=== PATIENT | female | born 1990 | race African-American/Black ===

== ENCOUNTER → 2016-05-16 | Outpatient (CLI) | payer OTHER ==
[~2016-05-16] MED LIST: CALNTAB; CEPH-460 PO; GLUCKIT15; GLYB5TAB3 PO; LANC1MIS74; MACR100C2 PO; METR0.7528 VAGINAL; ONETTES4; TERC.4%V VAGINAL; TERC0.8C VAGINAL; TRUE METRIX BLO1 KIT
== END ==
LOC: HPND 08:19
PROVIDERS: ATTEND Obstetrics & Gynecology
DX: O99.212 Obesity complicating pregnancy, second trimester (principal); E66.01 Morbid (severe) obesity due to excess calories; Z68.41 Body mass index [BMI] 40.0-44.9, adult
CPT/HCPCS: 76811

== ENCOUNTER → 2016-06-13 | Outpatient (CLI) | payer OTHER | LOC: HPND 08:39 | PROVIDERS: ATTEND Obstetrics & Gynecology | DX: O99.212 Obesity complicating pregnancy, second trimester (principal) | CPT/HCPCS: 76816 ==

== ENCOUNTER → 2016-07-11 | Outpatient (CLI) | payer OTHER ==
[~2016-07-11] MED LIST changes: -TERC.4%V VAGINAL
== END ==
LOC: HPND 08:20
PROVIDERS: ATTEND Obstetrics & Gynecology
DX: O99.212 Obesity complicating pregnancy, second trimester (principal); E66.01 Morbid (severe) obesity due to excess calories; Z68.43 Body mass index [BMI] 50.0-59.9, adult
CPT/HCPCS: 76816

== ENCOUNTER → 2016-07-31 | Outpatient (CLI) | payer OTHER ==
[~2016-07-31] MED LIST changes: -GLUCKIT15
== END ==
LOC: CDED 07:34
DX: O24.419 Gestational diabetes mellitus in pregnancy, unspecified control (principal); Z3A.00 Weeks of gestation of pregnancy not specified
CPT/HCPCS: 97802

== ENCOUNTER → 2016-08-08 | Outpatient (CLI) | payer OTHER | LOC: HPND 07:44 | PROVIDERS: ATTEND Obstetrics & Gynecology | DX: O24.419 Gestational diabetes mellitus in pregnancy, unspecified control (principal); O36.63X0 Maternal care for excessive fetal growth, third trimester, not applicable or unspecified; O99.213 Obesity complicating pregnancy, third trimester; Z3A.30 30 weeks gestation of pregnancy | CPT/HCPCS: 76816 ==

== ENCOUNTER 2016-08-25 18:24 | Emergency (ER) | payer OTHER ==
[~2016-08-25 18:24] MED LIST changes: -CEPH-460 PO; -MACR100C2 PO; -METR0.7528 VAGINAL
[2016-08-25 18:56] VITALS: BP 115/69; PULSE 98
--- NOTE | 2016-08-25 19:36 | PD ---
HPI Chief Complaint Lower abdominal pain Date Seen: Aug 25, 2016 Time Seen: 19:32 Travel History International Travel<30 Days: No Contact w/Intl Traveler<30Days: No Known Affected Area: No History of Present Illness HPI 25-year-old who is at 33 weeks gestation comes in complaining of lower abdominal pain that has been repetitive every day for the past several days, present episode began last night. She states it is a constant pain suprapubic towards the left side associated with some vaginal pressure. Denies contractions denies vaginal bleeding. Patient has had good movement. has been complicated by gestational diabetes recently been placed on glyburide at night. Previous with spontaneous vaginal delivery at term Para: 1 : 3 Miscarriage: 1 History Past Medical History Narrative Medical Gestational diabetes, hypoglycemic agent required Obstetric History Obstetric History Spontaneous vaginal delivery 15 week miscarriage Past Surgical History Surgical History: No Previous Surgery Family History Family History: Negative Social History Alcohol Use: No Tobacco Use: No Substance Abuse: No Allergies-Medications (Allergen,Severity, Reaction): Coded Allergies: No Known Allergies (Unverified , 08/12/16) Home Meds Active Scripts Glyburide 5 Mg Tab5 Mg PO DAILY #30 TAB Ref 0 Take with meals at the same time each day Prov:Jaswinder Chahal MD 08/12/16 True Metrix Blood Glucose W/Device 1 Kit Kit #1 Kit .route As Directed Prov:Shelby Figueroa 08/05/16 Onetouch Ultra Test Strips 1 Karlee Karlee #1 STRIP .ROUTE DIRECTED Ref 11 please substitute what test strips are covered by pt's insurance plan, for onetouch glucometer. Prov:Maddi Gross CNMP 07/31/16 Onetouch Delica Lancets E 1 Mis Mis #120 EA .ROUTE DIRECTED Ref 2 Prov:Maddi Gross CNMP 07/31/16 Terconazole Vaginal Cream 0.8 % Cream1 Appl VAGINAL HS #20 GM Ref 2 For 3 days. Prov:Maddi Gross CNMP 07/11/16 Reported Medications Vitamin (Calna)1 Tab Tab 05/01/16 Review of Systems Except as stated in HPI: all other systems reviewed are Neg Physical Exam Narrative GENERAL: Well-nourished, well-developed patient. SKIN: Warm and dry. HEAD: Normocephalic and atraumatic. EYES: No scleral icterus. No injection or drainage. ENT: No nasal drainage noted. Mucous membranes pink. Airway patent. NECK: Supple, trachea midline. No JVD. CARDIOVASCULAR: Regular rate and rhythm without murmurs, gallops, or rubs. RESPIRATORY: Breath sounds equal bilaterally. No accessory muscle use. ABDOMEN/GI: Abdomen soft, non-tender, bowel sounds present, no rebound, no guarding Gravid to [-35] weeks size Fundal Height: [-] GENITOURINARY: External Genitalia: intact and normal in appearance BUS glands: [-Normal] Cervix: [Posterior-] Dilatation: [Closed-] Effacement: [-0] Station: [High-] Presentation: [-Vertex] Membranes: [intact ] Uterine Contractions: [Absent-] FHT's: Category: [-1] Baseline: [-145] Reactive: [-Moderate] Variability: [-Moderate] Decels: [-Absent] EXTREMITIES: No cyanosis or edema. BACK: Nontender without obvious deformity. No CVA tenderness. NEUROLOGICAL: Awake and alert. Motor and sensory grossly within normal limits. Five out of 5 muscle strength in all muscle groups. Normal speech. Data Data Labs Laboratory Tests Test 08/25/16 19:30 Urine Color YELLOW Urine Turbidity HAZY Urine pH 6.0 Urine Specific Speculator 1.030 Urine Protein 30 mg/dL Urine Glucose (UA) NEG mg/dL Urine Ketones 10 mg/dL Urine Occult Blood NEG Urine Nitrite NEG Urine Bilirubin NEG Urine Urobilinogen 2.0 MG/DL Urine Leukocyte Esterase LARGE Urine RBC 1 /hpf Urine WBC 4 /hpf Urine Squamous Epithelial 2 /hpf Cells Urine Mucus MANY /lpf Microscopic Urinalysis Comment CULT NOT INDICATED MDM Plan 25-year-old who is at 33 weeks gestation Lower abdominal discomfort with vaginal pressure associated with discomforts of No contractions or labor signs are noted Gestational diabetes with a follow-up on with her erp manager Diagnosis Diagnosis: Primary Impression: 33 weeks gestation of Additional Impressions: Morbid obesity Gestational diabetes Gestational diabetes mellitus treated with oral hypoglycemic therapy related bilateral lower abdominal pain, antepartum Pelvic pressure in , antepartum Disposition: 01 DISCHARGE HOME Eva Mendoza MD Aug 25, 2016 19:36
[2016-08-25 20:05] LABS: BLOOD, URINE NEG (NEG); COMMENT (UR) CULT NOT INDICATED; CULTURE IF INDICATED CULT NOT INDICATED; GLUCOSE,URINE NEG (NEG); KETONE, URINE 10 mg/dL (NEG); MUCUS URINE MANY /lpf (OCC); NITRITE,URINE NEG (NEG); SQUAMOUS EPITHELIAL CELL URINE 2 /hpf (0-5); URINE COLOR YELLOW (YELLW/STRAW)
[2016-08-28] MEDS ORDERED: CEPH-460 PO (09:13)
== END 2016-08-25 20:31 | disposition home or self-care (01) ==
LOC: HOBED 18:24
DX: O24.415 Gestational diabetes mellitus in pregnancy, controlled by oral hypoglycemic drugs (principal); R10.30 Lower abdominal pain, unspecified; O99.213 Obesity complicating pregnancy, third trimester; Z3A.33 33 weeks gestation of pregnancy
CPT/HCPCS: 81001; 99282

== ENCOUNTER → 2016-09-05 | Outpatient (CLI) | payer OTHER ==
[~2016-09-05] MED LIST changes: +CEPH-460 PO; -TERC0.8C VAGINAL
== END ==
LOC: HPND 08:23
PROVIDERS: ATTEND Obstetrics & Gynecology
DX: O24.410 Gestational diabetes mellitus in pregnancy, diet controlled (principal); O99.213 Obesity complicating pregnancy, third trimester; O36.63X0 Maternal care for excessive fetal growth, third trimester, not applicable or unspecified; Z68.41 Body mass index [BMI] 40.0-44.9, adult
CPT/HCPCS: 76816

== ENCOUNTER 2016-09-25 09:53 | Inpatient (IN) | payer OTHER ==
[2016-09-25] VITALS (26 sets, daily range): BP systolic 99–133; BP diastolic 44–85; PULSE 80–100; RESP 15–18; TEMP 97.7–98.2
[~2016-09-25] VITALS: Ht 177.8 cm; Wt 139.7 kg
[~2016-09-25 09:53] MED LIST changes: -CEPH-460 PO
[2016-09-25] MEDS ORDERED: LACTATED RINGER'S 1000 ML INJ 1,000 ML IV PRN (10:42)
[2016-09-25] MEDS ORDERED: LIDOCAINE HCL 1% 50 ML VIAL INFIL PRN (10:45)
[2016-09-25] MEDS ORDERED: SODIUM CHLORID 0.9% 500 ML INJ 500 ML OTHER PRN (10:45)
[2016-09-25] MEDS ORDERED: LIDOCAINE HCL 1% 50 ML VIAL I-DERMAL PRN (10:45)
[2016-09-25] MEDS ORDERED: CITRIC ACID-SODIUM CITRATE LIQ 30 ML UDC PO SCH (10:45)
[2016-09-25] MEDS ORDERED: MINERAL OIL 10 ML VIAL TOPICAL PRN (10:45)
--- NOTE | 2016-09-25 10:49 | PD ---
HPI Chief Complaint Contractions Date Seen: Sep 25, 2016 Time Seen: 10:30 (Geremias Mata MD R1) Travel History International Travel<30 Days: No Contact w/Intl Traveler<30Days: No Known Affected Area: No (Geremias Mata MD R1) History of Present Illness HPI at 37/4 weeks gestation presenting for painful contractions. They have been irregular for the last couple days, but then this morning after visiting her FASHION DIRECTOR became more regular and painful. Currently about every 3-4 minutes apart. In the [employer]ASHION DIRECT[employer] office, she was 4/75/-2. She denies leakage of fluid. Endorses movement. Endorses light vaginal bleeding. Denies chest pain, shortness of breath, fevers or chills, dysuria. (Geremias Mata MD R1) History Past Medical History Narrative Medical Gestational diabetes controlled with diet and glyburide (Geremias Mata MD R1) Obstetric History Obstetric History First 9 years ago, delivered vaginally 1 spontaneous (Geremias Mata MD R1) Past Surgical History Surgical History: No Previous Surgery (Geremias Mata MD R1) Family History Family History: Negative (Geremias Mata MD R1) Social History Alcohol Use: No Tobacco Use: No Substance Abuse: No (Geremias Mata MD R1) Allergies-Medications (Allergen,Severity, Reaction): Coded Allergies: No Known Allergies (Unverified , 09/25/16) Home Meds Active Scripts Glyburide 5 Mg Tab5 Mg PO DAILY #30 TAB Ref 0 Take with meals at the same time each day Prov:Jaswinder Chahal MD 08/12/16 True Metrix Blood Glucose W/Device 1 Kit Kit #1 Kit .route As Directed Prov:Shelby Figueroa 08/05/16 Onetouch Ultra Test Strips 1 Karlee Karlee #1 STRIP .ROUTE DIRECTED Ref 11 please substitute what test strips are covered by pt's insurance plan, for onetouch glucometer. Prov:Maddi Gross CNMP 07/31/16 Onetouch Delica Lancets E 1 Mis Mis #120 EA .ROUTE DIRECTED Ref 2 Prov:Maddi Gross CNMP 07/31/16 Reported Medications Vitamin (Calna)1 Tab Tab 05/01/16 Review of Systems Except as stated in HPI: all other systems reviewed are Neg (Geremias Mata MD R1) Physical Exam Narrative GENERAL: Well-nourished, well-developed patient. SKIN: Warm and dry. HEAD: Normocephalic and atraumatic. EYES: No scleral icterus. No injection or drainage. ENT: No nasal drainage noted. Mucous membranes pink. Airway patent. CARDIOVASCULAR: Regular rate and rhythm without murmurs, gallops, or rubs. RESPIRATORY: Breath sounds equal bilaterally. No accessory muscle use. ABDOMEN/GI: Abdomen soft, non-tender, no rebound, no guarding EFW: 3700 g GENITOURINARY: Cervix: posterior Dilation: 5-6 Effacement: 50% Presentation: vertex Membranes: intact Contractions: regular every 3-4 minutes FHT's: Category: 1 Baseline: 125 Reactive: Y Variability: moderate Decels: none EXTREMITIES: No cyanosis or edema. NEUROLOGICAL: Awake and alert. Motor and sensory grossly within normal limits. Normal speech. (Geremias Mata MD R1) Data Data Vital Signs Reviewed: Yes Orders Admit To Inpatient (09/25/16 ) Code Status (09/25/16 10:42) Vital Signs (Adult) .Per protocol (09/25/16 10:42) Activity Oob Ad Jennifer (09/25/16 10:42) Heart (09/25/16 10:42) Amnioinfusion (09/25/16 10:42) Diet Liquid (09/25/16 Lunch) Lactated Ringer's 1000 Ml Inj (Lr 1000 M (09/25/16 10:42) Lactated Ringer's 1000 Ml Inj (Lr 1000 M (09/25/16 10:42) Sodium Chlorid 0.9% 500 Ml Inj (Ns 500 M (09/25/16 10:45) Sodium Chlor 0.9% 1000 Ml Inj (Ns 1000 M (09/25/16 11:02) Lidocaine 1% Inj (50 Ml) (Xylocaine 1% I (09/25/16 10:45) Citric Acid-Sodium Citrate Liq (Bicitra (09/25/16 10:45) Fentanyl Inj (Fentanyl Inj) (09/25/16 10:45) Fentanyl Inj (Fentanyl Inj) (09/25/16 10:45) Penicillin G Potassium Inj (Pfizerpen-G (09/25/16 10:45) Penicillin G Potassium Inj (Pfizerpen-G (09/25/16 14:45) Complete Blood Count With Diff (09/25/16 10:42) Hold Clot (09/25/16 10:42) Abo/Rh Blood Type (09/25/16 10:42) Urinalysis - C+S If Indicated (09/25/16 10:42) Resp Oxygen Non Rebreathe Mask (09/25/16 ) Oxytocin 30 Units-500ml Premix (Pitocin (09/25/16 10:45) Lidocaine 1% Inj (50 Ml) (Xylocaine 1% I (09/25/16 10:45) Light Mineral Oil (Muri-Lube Oil) (09/25/16 10:45) Inpatient Certification (09/25/16 ) (Geremias Mata MD R1) MDM Medical Record Reviewed: Yes Narrative Course / MDM 25-year-old at 37/4 weeks gestation in labor #1 IUP Category 1 tracing, reassuring - Continuous monitoring #2 normal labor Cervical change plus active contractions - Admit to labor and delivery - Routine antepartum care - Patient opts against anesthesia by epidural - Fentanyl as needed for pain #3 GBS positive - Penicillin prophylaxis during labor (Geremias Mata MD R1) Attending Attestation The exam, history, and the medical decision-making described in the above note were completed with the assistance of the resident provider. I reviewed and agree with the findings presented. I attest that I had a [id number] encounter with the patient on the same day, and personally performed and documented my assessment and findings in the medical record. (Chavez Sheikh MD) Diagnosis Diagnosis: Primary Impression: Normal labor Geremias Mata MD R1 Sep 25, 2016 10:49 Chavez Sheikh MD Sep 25, 2016 10:54
[2016-09-25] MEDS ORDERED: LACTATED RINGER'S 1000 ML INJ 1,000 ML IV SCH (11:00)
[2016-09-25] MEDS ORDERED: PENICILLIN G POTASSIUM INJ 5,000,000 UNITS in SODIUM CHLORIDE 0.9% INJ 100 ML IV ONE (11:00)
[2016-09-25] MEDS ORDERED: SODIUM CHLOR 0.9% 1000 ML INJ 1,000 ML OTHER PRN (11:02)
[2016-09-25 11:10] LABS: AUTOMATED NEUTROPHIL # 6.1 TH/MM3 (1.8-7.7); BASOPHIL % 0.3 % (0.0-2.0); EOSINOPHIL % 0.4 % (0.0-4.0); HEMATOCRIT 32.3 % (35.0-46.0); HEMO FLAGS DIFF FINAL; LYMPH % 16.4 % (9.0-44.0); LYMPHOCYTE # 1.3 TH/MM3 (1.0-4.8); MEAN CELL VOLUME 79.5 FL (80.0-100.0); MEAN CORPUSCULAR HEMOGLOBIN 25.8 PG (27.0-34.0); MEAN CORPUSCULAR HGB CONC 32.5 % (32.0-36.0); MONO % 4.9 % (0.0-8.0); PLATELET COUNT 279 TH/MM3 (150-450); RED BLOOD COUNT 4.06 MIL/MM3 (4.00-5.30); RED CELL DISTRIBUTION WIDTH 16.2 % (11.6-17.2); WHITE BLOOD COUNT 7.8 TH/MM3 (4.0-11.0)
[2016-09-25 11:14] LABS: BACTERIA, URINE FEW /hpf; BLOOD, URINE MOD (NEG); GLUCOSE,URINE NEG (NEG); KETONE, URINE TRACE mg/dL (NEG); MUCUS URINE FEW /lpf (OCC); NITRITE,URINE NEG (NEG); SQUAMOUS EPITHELIAL CELL URINE 18 /hpf (0-5); URINE COLOR RED (YELLW/STRAW)
[2016-09-25 11:15] LABS: COMMENT (UR) CULTURE INDICATED; CULTURE IF INDICATED CULTURE INDICATED
[2016-09-25] MEDS ORDERED: OXYTOCIN 30 UNITS-500ML PREMIX 500 ML IV ONE (11:15)
[2016-09-25] MEDS ORDERED: PENICILLIN G POTASSIUM INJ 2,500,000 UNITS in SODIUM CHLORIDE 0.9% INJ 100 ML IV SCH (15:00)
--- NOTE | 2016-09-25 15:15 | PD.LABORPN ---
Subjective Subjective Pt is feeling contractions but lying in bed in NAD. Category 1 tracing. AROM at 1455 hours with little fluid seen; 6-7cm 70% and -2. Pt does not desire pain control. (Ross Dorman MD R1) Objective Vital Signs Vital Signs Date Time Temp Pulse Resp B/P Pulse Ox O2 Delivery O2 Flow Rate FiO2 09/25/16 15:00 82 09/25/16 13:25 92 09/25/16 13:23 86 99/44 09/25/16 13:20 84 09/25/16 13:15 82 09/25/16 11:50 89 09/25/16 11:45 87 09/25/16 11:25 94 09/25/16 11:20 98 09/25/16 11:20 100 119/73 09/25/16 11:15 96 Objective Pelvic Exam: Cervix: open Dilatation: 6-7 Effacement: 70 Station: -2 Presentation: vtx Membranes: AROM at 1455 hours with little clear fluid noted Uterine Contractions: none; however, pt states she is feeling contractions FHT's: Category: 1 Baseline: 140 Reactive: yes Variability: moderate Decels: 0 (oRss Dorman MD R1) Assessment/Plan Assessment and Plan 25 YO in labor (Ross Dorman MD R1) Assessment and Plan I examined patient: cervix 7-8/70/-2, AROM blood tinged fluid, IUPC placed (Chavez Sheikh MD) Ross Dorman MD R1 Sep 25, 2016 15:15 Chavez Sheikh MD Sep 25, 2016 15:19
[2016-09-25] MEDS ORDERED: DIPHTH/TETANUS/ACEL PERTUSSIS (BOOSTER) 0.5 ML VIAL/PFS IM ONE (16:00)
[2016-09-25] MEDS ORDERED: MEASLES, MUMPS, RUBELLA VACCINE 0.5 ML VIAL SQ ONE (16:00)
[2016-09-25] MEDS ORDERED: LIDOCAINE HCL 1% 50 ML VIAL ONE (17:36)
[2016-09-25] MEDS ORDERED: DOCUSATE SODIUM 50 MG/SENNA 8.6 MG TAB PO PRN (17:45)
[2016-09-25] MEDS ORDERED: ZOLPIDEM TARTRATE 5 MG TAB PO PRN (17:45)
[2016-09-25] MEDS ORDERED: BENZOCAINE 20% TOPICAL SPRAY 60 ML CAN TOPICAL PRN (17:45)
[2016-09-25] MEDS ORDERED: WITCH HAZEL 50%/GLYCERIN 12.5% 40 PAD JAR TOPICAL PRN (17:45)
[2016-09-25] MEDS ORDERED: ALUMINUM/MAGNESIUM/SIMETH 30 ML CUP PO PRN (17:45)
[2016-09-25] MEDS ORDERED: ACETAMINOPHEN 325 MG TAB PO PRN (17:45)
[2016-09-25] MEDS ORDERED: ONDANSETRON ODT 4 MG TAB PO PRN (17:45)
[2016-09-25] MEDS ORDERED: SODIUM CHLORIDE 0.9% FLUSH 10 ML FLUSH IV FLUSH PRN (17:45)
[2016-09-25] MEDS ORDERED: oxyCODONE/ACETAMINOPHEN 5 MG/325 MG TAB PO PRN ×2 (17:45)
--- NOTE | 2016-09-25 17:47 | PD.OB.DELI ---
Delivery Date: Sep 25, 2016 Anesthesia: None Episiotomy: None Vaginal Delivery: Normal, Spontaneous Presentation: Occiput anterior Nuchal Cord: None Delayed cord clamping (45 sec): Yes : Female One Minute : 8 Five Minute : 9 Weight: 3540 Placenta: Spontaneous delivery, Intact, 3 vessel cord Laceration: 2 deg Repair: Vicryl running Additional Information G3 now P2 at 37/4 weeks gestation with normal spontaneous vaginal delivery of a live female infant over an intact perineum without epidural anesthesia. No nuchal cord present. Spontaneous delivery of placenta with 3-vessel cord. 2nd degree laceration located at 8 o'clock intravaginally repaired with running 3-0 vicryl. Estimated blood loss [address] Dorman, assisted by Dr. Pena, attended by Dr. Sheikh (Winston Pena MD R2) Attestation I was present and directly supervised/assisted with the entire delivery procedure and vaginal repair. (Chavez Sheikh MD) Winston Pena MD R2 Sep 25, 2016 17:47 Chavez Sheikh MD Sep 25, 2016 18:10
[2016-09-25] MEDS: IBUPROFEN 600 MG TAB PO PRN (20:41)
[2016-09-25] MEDS ORDERED: SODIUM CHLORIDE 0.9% FLUSH 10 ML FLUSH IV FLUSH SCH (21:00)
--- NOTE | 2016-09-26 07:21 | HHI.OB ---
Subjective Post Day: 1 Remarks 25 YO delivered at 37/4 weeks and is progressing well on PPD1. Pt meeting all goals appropriately: ambulating, tolerating PO, pain controlled on Tylenol and Motrin, voiding and passing flatus but no stooling yet. Exclusively with mild to moderate bleeding. AFVSS. Denies CP , SOB, N/V/D and DVT pain. Objective Vitals/I&O Vital Signs Date Time Temp Pulse Resp B/P Pulse Ox O2 Delivery O2 Flow Rate FiO2 09/25/16 20:00 98.2 09/25/16 20:00 80 16 121/60 09/25/16 18:55 18 09/25/16 18:46 81 122/54 09/25/16 18:38 84 09/25/16 18:38 112/62 09/25/16 18:33 81 99/58 09/25/16 18:31 87 09/25/16 18:25 82 09/25/16 18:25 15 09/25/16 18:16 126/85 09/25/16 18:02 97.8 09/25/16 18:01 16 09/25/16 18:01 84 115/63 09/25/16 17:53 18 09/25/16 17:48 80 133/60 09/25/16 16:21 96 15 117/73 09/25/16 15:10 88 09/25/16 15:07 86 128/75 09/25/16 15:05 97.7 85 09/25/16 15:00 82 09/25/16 13:25 92 09/25/16 13:23 86 99/44 09/25/16 13:20 84 09/25/16 13:15 82 09/25/16 11:50 89 09/25/16 11:45 87 09/25/16 11:25 94 09/25/16 11:20 98 09/25/16 11:20 100 119/73 09/25/16 11:15 96 Objective Remarks GENERAL: Well-nourished, well-developed patient in NAD resting in bed with her baby. CARDIOVASCULAR: Regular rate and rhythm without murmurs, gallops, or rubs. RESPIRATORY: Breath sounds equal bilaterally w/no increased WOB. No accessory muscle use. ABDOMEN/GI: Abdomen soft, non-tender, no guarding or rebound Fundus: Firm, non-tender below umbilicus. GENITOURINARY: Light to moderate bleeding. EXTREMITIES: No cyanosis or edema, non-tender, without signs of DVT. Medications and IVs Current Medications Medications (Trade) Dose Ordered Sig/Ludy Route Start Time Stop Time Status Last Admin (Pfizerpen-G Inj/ NS Inj) 100 ml @ 200 mls/hr Q4H IV 09/25/16 15:00 09/25/16 14:47 (NS Flush) 2 ml BID IV FLUSH 09/25/16 21:00 (NS Flush) 2 ml UNSCH PRN IV FLUSH 09/25/16 17:45 (Tylenol) 650 mg Q4H PRN PO 09/25/16 17:45 09/25/16 20:41 (Motrin) 600 mg Q6H PRN PO 09/25/16 17:45 09/25/16 20:41 (Percocet 5-325 Mg) 1 tab Q4H PRN PO 09/25/16 17:45 (Percocet 5-325 Mg) 2 tab Q4H PRN PO 09/25/16 17:45 (Americaine 20% Top Spr) 1 spray Q4H PRN TOPICAL 09/25/16 17:45 (Tucks Pads) 1 applic QID PRN TOPICAL 09/25/16 17:45 (Yusra-Colace) 2 tab Q12H PRN PO 09/25/16 17:45 (Ambien) 5 mg HS PRN PO 09/25/16 17:45 (Mag-Al Plus Susp Liq) 15 ml Q8H PRN PO 09/25/16 17:45 (Zofran Odt) 4 mg Q6H PRN PO 09/25/16 17:45 Assessment/Plan Assessment and Plan 25 YO s/p on PPD1 and progressing well - AFVSS - Routine care including: -- Motrin and Tylenol PRN for pain -- -- Encourage OOB, hydration, multivitamin -- Plans to get an IUD placed as outpatient -- Pelvic rest x6 weeks -- Anticipate D/C 09/27 home Ross Dorman MD R1 Sep 26, 2016 07:21
[2016-09-26 07:55] VITALS: BP 134/72; PULSE 68; RESP 16; TEMP 98.2
[2016-09-26] MEDS: IBUPROFEN 600 MG TAB PO PRN (19:59)
[2016-09-26 20:00] VITALS: BP 110/72; PULSE 88; RESP 20; TEMP 98.1
[2016-09-27 08:05] VITALS: BP 107/71; PULSE 84; RESP 16; TEMP 97.8
[2016-09-27] MEDS ORDERED: IBUP-232 PO (08:29)
[2016-09-27] MEDS ORDERED: SENN1TAB PO (08:30)
--- NOTE | 2016-09-27 08:30 | HHI.DCPOC ---
Discharge Care Plan Diagnosis: (1) Report Symptoms to Your Doctor -Temperature above 100.5 degrees -Redness, of incision or excessive or foul smelling drainage -Unusual pain or calf pain -Increased vaginal bleeding -Painful or difficulty urinating -Feelings of extreme sadness or anxiety after 2 weeks Goals to Promote Your Health * To prevent worsening of your condition and complications * To maintain your health at the optimal level Directions to Meet Your Goals Take your medications as prescribed Follow your dietary instruction Follow activity as directed Ensure plenty of rest for recovery Drink fluids for hydration Keep your appointments as scheduled Take your immunizations and boosters as scheduled If your symptoms worsen call your PCP, if no PCP go to Urgent Care Center or Emergency Room Smoking is Dangerous to Your Health. Avoid second hand smoke Call the 24-hour crisis hotline for domestic abuse at Rosales Krishnan MD R1 Sep 27, 2016 08:30
--- NOTE | 2016-09-27 08:48 | HHI.OB ---
Subjective Post Day: 2 Remarks day #2. AFVSS overnight. Pain minimal. Decreased lochia. Denies dysuria. No breast tenderness. She is feeding the baby via breast. Appetite good. No nausea or vomiting. Endorses flatus. Endorses bowel movement. Ambulating well. Denies calf pain, shortness of breath, or cough. Otherwise, she is doing well this morning and has no other complaints. Objective Vitals/I&O Vital Signs Date Time Temp Pulse Resp B/P Pulse Ox O2 Delivery O2 Flow Rate FiO2 09/27/16 08:05 97.8 84 16 107/71 09/26/16 20:00 98.1 09/26/16 20:00 88 20 110/72 Objective Remarks GENERAL: Well-nourished, well-developed patient in NAD resting in bed with her baby. CARDIOVASCULAR: Regular rate and rhythm without murmurs, gallops, or rubs. RESPIRATORY: Breath sounds equal bilaterally w/no increased WOB. No accessory muscle use. ABDOMEN/GI: Abdomen soft, non-tender, no guarding or rebound Fundus: Firm, non-tender below umbilicus. GENITOURINARY: Light to moderate bleeding. EXTREMITIES: No cyanosis or edema, non-tender, without signs of DVT. Medications and IVs Current Medications Medications (Trade) Dose Ordered Sig/Ludy Route Start Time Stop Time Status Last Admin (Pfizerpen-G Inj/ NS Inj) 100 ml @ 200 mls/hr Q4H IV 09/25/16 15:00 09/25/16 14:47 (NS Flush) 2 ml BID IV FLUSH 09/25/16 21:00 (NS Flush) 2 ml UNSCH PRN IV FLUSH 09/25/16 17:45 (Tylenol) 650 mg Q4H PRN PO 09/25/16 17:45 09/25/16 20:41 (Motrin) 600 mg Q6H PRN PO 09/25/16 17:45 09/26/16 19:59 (Percocet 5-325 Mg) 1 tab Q4H PRN PO 09/25/16 17:45 (Percocet 5-325 Mg) 2 tab Q4H PRN PO 09/25/16 17:45 (Americaine 20% Top Spr) 1 spray Q4H PRN TOPICAL 09/25/16 17:45 (Tucks Pads) 1 applic QID PRN TOPICAL 09/25/16 17:45 (Yusra-Colace) 2 tab Q12H PRN PO 09/25/16 17:45 (Ambien) 5 mg HS PRN PO 09/25/16 17:45 (Mag-Al Plus Susp Liq) 15 ml Q8H PRN PO 09/25/16 17:45 (Zofran Odt) 4 mg Q6H PRN PO 09/25/16 17:45 Assessment/Plan Assessment and Plan 25 YO s/p on PPD2 - AFVSS - Routine care including: -- Motrin and Tylenol PRN for pain -- -- Encourage OOB, hydration, multivitamin -- Plans to get an IUD placed as outpatient -- Pelvic rest x6 weeks -- D/c today Rosales Krishnan MD R1 Sep 27, 2016 08:48
== END 2016-09-27 14:57 | disposition home or self-care (01) | DRG 775 ==
LOC: HOBED 09:53 → H2EB 10:53 → H1EA 19:40
PROVIDERS: ADMIT Obstetrics & Gynecology; ATTEND Obstetrics & Gynecology
PROC: 10E0XZZ Delivery of Products of Conception, External Approach (ICD-10-PCS; principal; 2016-09-25)
PROC: 0KQM0ZZ Repair Perineum Muscle, Open Approach (ICD-10-PCS; 2016-09-25)
PROC: 10907ZC Drainage of Amniotic Fluid, Therapeutic from Products of Conception, Via Natural or Artificial Opening (ICD-10-PCS; 2016-09-25)
DX: O24.425 Gestational diabetes mellitus in childbirth, controlled by oral hypoglycemic drugs (principal); O99.824 Streptococcus B carrier state complicating childbirth; O70.1 Second degree perineal laceration during delivery; Z37.0 Single live birth; Z3A.37 37 weeks gestation of pregnancy
CPT/HCPCS: 59025; 81001; 85025; 86900; 86901; 87086; 90707; 90715; J2540; J2590; J3010; J7120

== ENCOUNTER 2017-05-03 09:14 | Emergency (ER) | payer MEDICAID, OTHER ==
[~2017-05-03] VITALS: Ht 177.8 cm; Wt 100.0 kg
[~2017-05-03 09:14] MED LIST changes: -CALNTAB; -GLYB5TAB3 PO; -LANC1MIS74; -ONETTES4; +PARAIUD; -TRUE METRIX BLO1 KIT
[2017-05-03 09:17] VITALS: BP 119/80; PULSE 93; RESP 16; TEMP 98.2; O2SAT 99
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
[2017-05-03] MEDS ORDERED: ACETAMINOPHEN/HYDROcodone 325 MG/5 MG TAB PO ONE (09:45)
[2017-05-03] MEDS ORDERED: ONDANSETRON ODT 4 MG TAB PO ONE (11:00)
[2017-05-03] MEDS ORDERED: LIDOCAINE HCL 1% 20 ML VIAL INFIL ONE (11:00)
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
[2017-05-03] MEDS ORDERED: IBUP1TAB7 PO (11:20)
== END 2017-05-03 12:41 | disposition home or self-care (01) ==
LOC: NEPD 09:14
DX: S01.81XA Laceration without foreign body of other part of head, initial encounter (principal); Y08.89XA Assault by other specified means, initial encounter; F32.9 Major depressive disorder, single episode, unspecified; E78.00 Pure hypercholesterolemia, unspecified
CPT/HCPCS: 12013; 70450; 70486; 84703

== ENCOUNTER 2017-05-10 11:55 | Emergency (ER) | payer MEDICAID ==
[~2017-05-10] VITALS: Ht 177.8 cm; Wt 100.0 kg
[~2017-05-10 11:55] MED LIST changes: +IBUP1TAB7 PO
[2017-05-10 12:08] VITALS: BP 128/71; PULSE 79; RESP 18; TEMP 98.7; O2SAT 99
--- NOTE | 2017-05-10 13:25 | PD ---
HPI Chief Complaint: Wound/Suture/Staple Re-Check Time Seen by Provider: 12:55 Travel History International Travel<30 days: No Contact w/Intl Traveler<30days: No Traveled to known affect area: No History of Present Illness HPI 26-year-old female presents to the emergency department requesting suture removal to a laceration she obtained to her mid forehead last Thursday. I saw the patient last Thursday and repaired the laceration. She denies erythema, edema , drainage from the wound site. Denies fever, vomiting. Denies pain. Symptoms are mild in severity. No known aggravating or relieving factors. No known allergies. Has no other medical complaints. No other modifying factors or associated signs and symptoms. PFSH Past Medical History Depression: Yes High Cholesterol: Yes Diminished Hearing: No Immunizations Current: Yes ?: Not LMP: 04/18/17 : 3 Para: 1 Miscarriage: 1 Social History Alcohol Use: No Tobacco Use: No Substance Use: No Allergies-Medications (Allergen,Severity, Reaction): Coded Allergies: No Known Allergies (Verified Adverse Reaction, Unknown, 05/10/17) Reported Meds & Prescriptions Reported Meds & Active Scripts Active Ibuprofen 800 Mg Tab 800 Mg PO Q6HR PRN Reported Paragard Intrauterine Construction Flagger (Copper (Iud)) 1 Iud Iud Review of Systems Except as stated in HPI: all other systems reviewed are Neg Physical Exam Narrative GENERAL: Well-nourished, well-developed black female patient, in no acute distress SKIN: Warm and dry. Laceration to mid forehead is well approximated with sutures intact; without erythema, edema, drainage. No signs of infection. HEAD: Atraumatic. Normocephalic. EYES: Pupils equal and round. No scleral icterus. No injection or drainage. ENT: Mucosa pink and moist. Airway patent. NECK: Trachea midline. CARDIOVASCULAR: Regular rate. RESPIRATORY: No accessory muscle use. GASTROINTESTINAL: Rounded. MUSCULOSKELETAL: No obvious deformities. No clubbing. No cyanosis. No edema. NEUROLOGICAL: Awake and alert. Oriented 3. No obvious cranial nerve deficits. Motor grossly within normal limits. Normal speech. PSYCHIATRIC: Appropriate mood and affect; insight and judgment normal. Data Data Last Documented VS Vital Signs Date Time Temp Pulse Resp B/P (MAP) Pulse Ox O2 Delivery O2 Flow Rate FiO2 05/10/17 13:48 72 18 124/67 (86) 98 05/10/17 12:08 98.7 Orders Orders Ed Discharge Order (05/10/17 13:25) MDM Medical Decision Making Medical Screen Exam Complete: Yes Emergency Medical Condition: Yes Medical Record Reviewed: Yes Differential Diagnosis Encounter for suture removal, wound recheck, medical clearance Narrative Course 18-year-old female presents for suture removal. Sutures were placed last Thursday and I did the laceration repair. There are no signs of infection. Sutures removed. Patient tolerated well. Instructed patient to follow up with primary care provider. Patient verbalizes understanding and agreement with treatment plan. Patient is medically cleared and stable for discharge. Discussed reasons to return to the emergency department. Patient agrees with treatment plan. The patients vital signs are stable and the patient is stable for outpatient follow-up and treatment. Patient discharged home, stable and in no acute distress. Diagnosis Primary Impression: Encounter for removal of sutures Referrals: [facility] Primary Care Physician Patient Instructions: Acute Wound Care (DC), Facial Laceration (ED), General Instructions, Laceration (ED) Additional Instructions: Apply Aquaphor or Vaseline for complete wound healing Follow-up with primary care provider Return to the emergency department immediately with worsening of symptoms Med/Other Pt SpecificInfo: No Change to Meds, No Meds Exist/No RX given Disposition: 01 DISCHARGE HOME Condition: Stable Wendi Ortiz May 10, 2017 13:25
[2017-05-10 13:48] VITALS: BP 124/67
== END 2017-05-10 13:49 | disposition home or self-care (01) ==
LOC: NEPD 11:55
DX: S01.81XD Laceration without foreign body of other part of head, subsequent encounter (principal); X58.XXXD Exposure to other specified factors, subsequent encounter; Z48.02 Encounter for removal of sutures
CPT/HCPCS: 99281